=== PATIENT | male | born 1985 | race African-American/Black ===

== ENCOUNTER 2016-11-08 23:40 | Emergency (ER) | payer OTHER ==
[2016-11-09] MEDS ORDERED: Ibuprofen 800 MG TAB ONE (00:15)
== END 2016-11-09 00:22 | disposition home or self-care (01) ==
LOC: BURERS 23:40
DX: M79.1 Myalgia (principal); F31.9 Bipolar disorder, unspecified; F20.9 Schizophrenia, unspecified; F17.210 Nicotine dependence, cigarettes, uncomplicated
CPT/HCPCS: 99283